=== PATIENT | female | born 1960 | race Two or more races ===

== ENCOUNTER → 2016-09-16 | Outpatient (CLI) | payer BC ==
--- NOTE | 2016-09-16 15:04 | RADRPT ---
PROCEDURE: Right knee radiographs. CLINICAL INDICATION: Right knee pain. TECHNIQUE: Three views. Weight bearing. Frontal, lateral, and patellar view. COMPARISON: No prior studies are available for comparison. FINDINGS: There is no fracture or dislocation. The soft tissues are normal. There is mild medial joint compartment narrowing and small osteophytes. Articular surfaces are othe rwise intact. There is no lytic or blastic lesion. There is no radiopaque foreign body. IMPRESSION: 1. Mild to moderate degenerative change involving the medial joint compartment. 2. Otherwise unremarkable images of the right knee. RPTAT: QQ .Felipe Jackson MD, MD Date Time Electronically viewed and signed by .Felipe Jackson MD, on 09/16/2016 15:04 .R/
--- NOTE | 2016-09-17 03:36 | HKNOTE ---
DATE OF SERVICE: 09/16/2016 MAIN COMPLAINT: Pain in the right knee. HISTORY OF MAIN COMPLAINT: The patient is a 55-year-old female who complains of pain in her right k nee when she leans on the knee as in kneeling. She has had this for about 2-1/2 months. There is no history of injury to the knee in that area. Her pain is only aggravated by direct pressure over the area and is not aggravated by any other acti vities. 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 PRESENT COMPLAINTS: Pain in the area noted. There is also numbness over the lateral aspect of the right calf. The pain is described as moderate, and she has no pain when she does not put pressure o n the area. Occasionally at night she gets "a pulsating pain" in the area. She does not take any m edications for the pain. She does have a history of problems with her lower back. She has had "her niated disks." She has had steroid injections into the area. She does get numbness and tingling over the lateral aspect of the right leg in the area noted as hav ing pain. She can walk as far as she likes. She never uses a walking aid. She does not limp. She can clip her toenails and tie her shoelaces. SPORTING ACTIVITIES: Gym, exercises, swimming, and volleyball. PAST ORTHOPEDIC HISTORY: No previous orthopedic operations. PRIOR CORTISONE INTAKE: Yes for herniated disk. ALCOHOL INTAKE: Two glasses of wine twice a month. OTHER JOINT PROBLEMS: Fingers occasionally go numb. BLOOD TESTS FOR ARTHRITIS: Yes. She does not have any results. X-rays of her hands have shown "th e beginning stages of arthritis." WORK STATUS: Negative. MEDICAL PROBLEMS: Hypertension. PAST SURGICAL HISTORY: "Uterine fiber" 2008, melissa gaspar 2006. ALLERGIES: PENICILLIN. MEDICATIONS: Valsartan 160 mg a day for hypertension. FAMILY HISTORY: Father unstated age, unstated cause. Mother age 74 and alive and well. SYSTEMS REVIEW: Varicose veins. Numbness in her fingers, hypertension, ankles swell occasionally. PREGNANCIES: 5. HABITS: The patient quit smoking 25 years ago. Alcohol intake: "A couple of glasses of wine twice a month." TELEVISION PRESENTER: ____ PHYSICAL EXAMINATION: VITAL SIGNS: Height 5 feet 7, weight 173 pounds, blood pressure 150/90, temperature 98.4. GAIT: The patient's gait is normal. RIGHT KNEE: The right knee shows normal alignment. Active and passive extension is 0 degrees. Activ e and passive flexion is 135 degrees. The medial and lateral collateral ligaments and cruciate ligam ents are intact. Dada test is negative. There is no effusion, scarring, crepitus, or cysts. The p atella tracks normally. There is no tenderness on the articular surface of the patella or in the pat ellar groove. The Q angle is normal. Point of marked tenderness subcutaneously over the anterolater al aspect of the knee just superior to the inferior pole of the patella. Direct pressure causes "el ectrical pain." Even the slightest touch the area causes her to have quite marked pain. The subcut aneous nerve can barely be palpated. No neuroma is palpable. DIAGNOSIS: Probable injured inferolateral branch of the femoral nerve. MANAGEMENT: Under sterile conditions, the patient is given an injection of 3 mL of lidocaine into t he tender area. All of pain immediately resolved. This was followed with an injection of 1 mL of Kenalog into the exact same area. X-RAYS: Imaging of the right knee obtained today (3 views at the [facility]) shon w minimal narrowing of the medial joint and patellofemoral joint. DISCUSSION: The patient is advised that I can give her no explanation for the cause. 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 She was advised that the cortisone injection given today probably will have no benefit at all but wa s worked at least a try. With a bit of luck, it may calm down any inflammation in the nerve. If she continues to have symptoms 3 weeks from now, she will return. DIAGNOSIS: 1. Subcutaneous neuritis of a branch of the femoral nerve. 2. Possible right-sided sciatica. She will be seen again in 4 weeks' time for reevaluation. Dictated By: ZENOBIA POSADA/MASHA Conf#: [id number] DID#: [id number]
== END | disposition home or self-care (01) ==
LOC: HKI 13:45
DX: G57.21 Lesion of femoral nerve, right lower limb (principal); I10 Essential (primary) hypertension; M54.5 Low back pain
CPT/HCPCS: 20610; 73562; G0463